=== PATIENT | female | born 1970 | race Caucasian/White ===

== ENCOUNTER 2018-10-23 05:40 | Day surgery (SDC) | payer OTHER ==
[2018-10-23] MEDS ORDERED: LIDOCAINE 1% (MPF) 30 ML INJ (06:47)
[2018-10-23] MEDS ORDERED: NEOMYC/POLYMYX/BACIT 30 GM OINT (06:48)
[2018-10-23] MEDS ORDERED: ALBUTEROL 0.083% (NEB) 2.5 MG/3 ML AMP HHN (07:30)
[2018-10-23] MEDS ORDERED: HYDROmorphONE 1 MG/5 ML IV SYRINGE IV (07:30)
[2018-10-23] MEDS ORDERED: METOCLOPRAMIDE 10 MG INJ IV (07:30)
[2018-10-23] MEDS ORDERED: FENTAnyl 50 MCG/ML VIAL IV ×2 (07:30)
[2018-10-23] MEDS ORDERED: DIPHENHYDRAMINE 50 MG INJ IV (07:30)
[2018-10-23] MEDS ORDERED: FENTAnyl 50 MCG/ML VIAL (07:55)
[2018-10-23] MEDS ORDERED: DESFLURANE 15 MIN (08:00)
[2018-10-23] MEDS ORDERED: morphine 2 MG INJ IV (08:00)
[2018-10-23] MEDS ORDERED: PROPOFOL 20 ML (08:12)
[2018-10-23] MEDS ORDERED: LIDOCAINE 100 MG SYRINGE (08:12)
[2018-10-23] MEDS ORDERED: ROCURONIUM 50 MG INJ (08:12)
[2018-10-23] MEDS ORDERED: SUCCINYLCHOLINE CHLORIDE 100 MG/5 ML SYG IV (08:12)
[2018-10-23] MEDS ORDERED: CEFAZOLIN 1 GM INJ (08:12)
[2018-10-23] MEDS: ROPIVACAINE 0.5 % 30 ML VIAL (08:23)
[2018-10-23] MEDS ORDERED: NEOSTIGMINE 3 MG/3 ML SYRINGE (08:53)
[2018-10-23] MEDS ORDERED: GLYCOPYRROLATE 0.4 MG INJ (08:53)
[2018-10-23] MEDS: HYDROmorphONE 1 MG/5 ML IV SYRINGE IV ×2 (09:26→09:37)
[2018-10-23] MEDS: ONDANSETRON 4 MG INJ IV (09:37)
[2018-10-23] MEDS: FENTAnyl 50 MCG/ML VIAL IV ×2 (09:41→09:48)
[2018-10-23] MEDS: MEPERIDINE 25 MG INJ IV (09:42)
== END 2018-10-23 11:55 | disposition home or self-care (01) ==
LOC: SDS 05:40
DX: S83.272D Complex tear of lateral meniscus, current injury, left knee, subsequent encounter (principal); S83.242D Other tear of medial meniscus, current injury, left knee, subsequent encounter; X58.XXXD Exposure to other specified factors, subsequent encounter; M94.262 Chondromalacia, left knee
CPT/HCPCS: 29880; 82306